=== PATIENT | female | born 1985 | race Caucasian/White ===

== ENCOUNTER → 2018-08-25 | Outpatient (CLI) | payer MEDICARE, OTHER ==
--- NOTE | 2018-08-25 17:00 | CT ---
EXAMINATION TYPE: CT wrist RT wo con DATE OF EXAM: 08/25/2018 COMPARISON: None HISTORY: Fracture distal RT radius CT DLP: 122.10 mGycm Automated exposure control for dose reduction was used. FINDINGS: Multiple axial sections were obtained from the distal radius to the MP joints without contrast. There is a 18 x 7 mm intra-articular impacted fracture of the radial styloid process. There is approx imate 3 mm of impaction. There is a second fracture fragment measures anteriorly displaced 3 mm. This fragment measures 13 x 6 mm. There is no dislocation. There is comminution. The carpal bones appear intact with normal joint spaces. Visualized carpals appear intact. Distal ulna is intact. IMPRESSION: Intra-articular radial styloid process impacted comminuted fracture.
== END | disposition home or self-care (01) ==
LOC: RADCTMAIN 13:23
PROVIDERS: ATTEND Orthopaedic Surgery Sports Medicine
DX: S52.511A Displaced fracture of right radial styloid process, initial encounter for closed fracture (principal)

== ENCOUNTER → 2018-09-28 | Outpatient (CLI) | payer MEDICARE, OTHER | END | disposition home or self-care (01) | LOC: LABWHC1 14:39 | PROVIDERS: ATTEND Orthopaedic Surgery | DX: M25.532 Pain in left wrist (principal); S52.572D Other intraarticular fracture of lower end of left radius, subsequent encounter for closed fracture with routine healing | CPT/HCPCS: 36415; 82306 ==